=== PATIENT | female | born 1950 | race Caucasian/White ===

== ENCOUNTER → 2017-07-22 | Outpatient (CLI) | payer MEDICARE, BC ==
[~2017-07-22] MED LIST: ACET-1966 PO; CAL1TABL14 PO; ESOM20CA31 PO; HUMNI SC; INSU100C14 SQ; INSU100V24 SC; INSU100V26 SC; LANI SUBQ; LEVO75TA73 PO; LEVO88TA45 PO; LIR18IPT SUBQ; METF-410 PO; METF-415 PO; NEED-653 ASDIRECTED; OMEG500C7 PO; SIM10 PO; SIMV10TA98 PO; VALS40TA6 PO; VALS40TA7 PO; VITA150T2 PO; ZOST19404 SC; [UNRECOGNIZED DRUG - CODE] PO; [UNRECOGNIZED DRUG - OTHER]; eye drops
[2017-07-22 08:16] LABS: PLATELET COUNT, AUTOMATED 209 K/uL (150-450)
[2017-07-22 08:49] LABS: LDL CHOLESTEROL 94 mg/dl
== END ==
LOC: LAB 07:47
PROVIDERS: ATTEND Nurse Practitioner Family
DX: E11.9 Type 2 diabetes mellitus without complications (principal); I10 Essential (primary) hypertension; E03.9 Hypothyroidism, unspecified; E78.5 Hyperlipidemia, unspecified
CPT/HCPCS: 36415; 82040; 82247; 82310; 82374; 82435; 82465; 82565; 82947; 83036; 83718; 84075; 84132; 84155; 84295; 84443; 84450; 84460; 84478; 84520; 85025

== ENCOUNTER 2018-01-27 19:11 | Emergency (ER) | payer OTHER, MEDICARE, BC ==
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
[2018-01-27] MEDS ORDERED: IOPAMIDOL 76% 75 ML INFUS BTL 0 ML ONE (19:45)
[2018-01-27 20:05] LABS: PLATELET COUNT, AUTOMATED 221 K/uL (150-450)
--- NOTE | 2018-01-27 21:25 | EKG ---
FACILITY: [facility] PATIENT NAME: KAR CASTRO : [id number] MR: [id number] V: [id number] EXAM DATE: ORDERING PHYSICIAN: NAT YOUSIF TECHNOLOGIST: CATARINA Yuan Reason : CARDIAC Blood Pressure : / mmHG Vent. Rate : 083 BPM Atrial Rate : 083 BPM P-R Int : 144 ms QRS Dur : 080 ms QT Int : 358 ms P-R-T Axes : 021 027 025 degrees QTc Int : 420 ms Sinus rhythm Decreased R wave progression anteriorly Abnormal ECG No previous ECGs available Confirmed by EMERY ESPINO ([id number]) on 01/28/2018 5:59:59 AM Referred By: Confirmed By:EMERY ESPINO
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
[2018-01-27] MEDS ORDERED: DIPHTH/TETANUS/ACEL. PERTUSSIS IM ONLY ONE ×2 (22:39→22:40)
== END 2018-01-27 22:00 | disposition home or self-care (01) ==
LOC: ER 19:25
DX: R41.3 Other amnesia (principal); E11.9 Type 2 diabetes mellitus without complications; R94.31 Abnormal electrocardiogram [ECG] [EKG]; V49.40XA Driver injured in collision with unspecified motor vehicles in traffic accident, initial encounter
CPT/HCPCS: 36416; 70450; 71046; 72125; 81001; 82040; 82247; 82310; 82374; 82435; 82565; 82947; 82948; 84075; 84132; 84155; 84295; 84450; 84460; 84484; 84520; 85025; 90471; 90715; 93005; 99285; Q9967

== ENCOUNTER → 2018-01-27 | Outpatient (CLI) | payer OTHER, MEDICARE, BC ==
[~2018-01-27] MED LIST changes: +BLOO1STR38 MC; -METF-410 PO; +METF-450 PO; +SYRI-1525 MC
== END ==
LOC: AMB 18:53
PROVIDERS: ATTEND Nurse Practitioner
DX: R41.82 Altered mental status, unspecified (principal); V43.52XA Car driver injured in collision with other type car in traffic accident, initial encounter; W22.11XA Striking against or struck by driver side automobile airbag, initial encounter; Y92.414 Local residential or business street as the place of occurrence of the external cause
CPT/HCPCS: A0425; A0429

== ENCOUNTER → 2018-01-29 | Outpatient (CLI) | payer OTHER, MEDICARE, BC | LOC: LAB 07:43 | PROVIDERS: ATTEND Nurse Practitioner Family | DX: E11.9 Type 2 diabetes mellitus without complications (principal); E03.9 Hypothyroidism, unspecified; I10 Essential (primary) hypertension | CPT/HCPCS: 36415; 82040; 82247; 82310; 82374; 82435; 82565; 82947; 83036; 84075; 84132; 84155; 84295; 84443; 84450; 84460; 84520 ==

== ENCOUNTER → 2018-06-30 | Outpatient (CLI) | payer MEDICARE, BC ==
[~2018-06-30] MED LIST changes: +LOSA-57 PO; +LOSA50TA80 PO; +PNEI IM; +VAL80 PO
== END ==
LOC: LAB 08:53
PROVIDERS: ATTEND Nurse Practitioner Family
DX: I10 Essential (primary) hypertension (principal)
CPT/HCPCS: 36415; 82310; 82374; 82435; 82565; 82947; 84132; 84295; 84520

== ENCOUNTER → 2018-07-28 | Outpatient (CLI) | payer MEDICARE, BC ==
[2018-07-28 07:58] LABS: PLATELET COUNT, AUTOMATED 239 K/uL (150-450)
[2018-07-28 08:45] LABS: LDL CHOLESTEROL 88 mg/dl
== END ==
LOC: LAB 07:39
PROVIDERS: ATTEND Nurse Practitioner Family
DX: E11.9 Type 2 diabetes mellitus without complications (principal); E03.9 Hypothyroidism, unspecified; I10 Essential (primary) hypertension; E78.5 Hyperlipidemia, unspecified
CPT/HCPCS: 36415; 82040; 82247; 82310; 82374; 82435; 82465; 82565; 82947; 83036; 83718; 84075; 84132; 84155; 84295; 84443; 84450; 84460; 84478; 84520; 85025

== ENCOUNTER → 2018-10-05 | Outpatient (CLI) | payer MEDICARE, BC ==
[~2018-10-05] MED LIST changes: +LEVO-3 PO; +NOVOLOG SUBQ; +SIMV-49 PO
[2018-10-05 10:11] LABS: PLATELET COUNT, AUTOMATED 240 K/uL (150-450)
== END ==
LOC: LAB 07:31
PROVIDERS: ATTEND Nurse Practitioner Family
DX: E03.9 Hypothyroidism, unspecified (principal); E11.9 Type 2 diabetes mellitus without complications; I10 Essential (primary) hypertension; E78.5 Hyperlipidemia, unspecified
CPT/HCPCS: 36415; 82040; 82247; 82310; 82374; 82435; 82565; 82947; 83036; 84075; 84132; 84155; 84295; 84443; 84450; 84460; 84520; 85025